=== PATIENT | male | born 1965 | race Caucasian/White ===

== ENCOUNTER 2018-04-22 08:29 | Emergency (ER) | payer SELFPAY ==
[~2018-04-22] VITALS: Ht 170.2 cm; Wt 101.3 kg
[2018-04-22 08:33] VITALS: BP 134/88; PULSE 75; RESP 18; Ht 170.2 cm; Wt 101.3 kg
--- NOTE | 2018-04-22 10:47 | ERD ---
ER Documentation Chief Complaint Chief Complaint LOW BACK PAIN RADIATING TO LEFT LEG. DESCRIBES SHOOTING PAIN. HPI 52-year-old male, with history of chronic back pain, presents to the emergency department, complaining of acute exacerbation of the left lower back pain, radiating to the left lower extremity, the pain is sharp, constant, 7/10. He denies distal weakness, numbness or tingling. ROS All systems reviewed and are negative except as per history of present illness. Medications Home Meds Active Scripts Baclofen* (Baclofen*) 10 Mg Tablet, 10 MG PO Q8 for 7 Days, #21 TAB Prov:VAN CARO MD 04/22/18 Hydrocodone/Acetaminophen (Arnold 5-325 Tablet) 1 Each Tablet, 1 TAB PO QHS PRN for PAIN, #7 TAB Prov:VAN CARO MD 04/22/18 Naproxen* (Naprosyn*) 500 Mg Tablet, 500 MG PO BID PRN for PAIN AND/OR INFLAMMATION for 7 Days, #14 TAB Prov:VAN CARO MD 04/22/18 Allergies Allergies: Coded Allergies: No Known Allergy (Unverified , 04/22/18) FmHx Family History: diabetes Physical Exam Vitals Vital Signs Date Temp Pulse Resp B/P (MAP) Pulse Ox O2 O2 Flow FiO2 Time Delivery Rate 04/22/18 98.4 75 18 134/88 99 08:33 (103) Physical Exam Patient is in no acute distress, vital signs stable. Alert and fully oriented. EYES: PERRLA, EOMI, Sclera and conjunctiva appear normal. EARS: Canals clear, tympanic membranes WNL THROAT: Normal oropharynx. NECK: Supple, No lymphadenopathy. Full ROM without pain or tenderness. HEART: RRR, no rubs, murmurs, clicks or gallops. LUNGS: Clear to auscultation. ABDOMEN: Soft, non-tender without masses or hepatosplenomegaly. EXTREMITIES: No edema bilaterally. BACK: Normal inspection, no deformity, decreased range of motion for lateral rotation and flexion. No vertebral tenderness, bilateral lower muscle spasm. NEURO: Cranial nerves grossly intact, no motor or sensory deficit Results 24 hrs Current Medications Medications Dose Sig/Shai Start Time Status Last (Trade) Ordered Route PRN Stop Time Admin Dose Reason Admin Ketorolac 60 mg ONCE STAT 04/22/18 DC 04/22/18 Tromethamine IM 11:21 04/22/18 11:29 (Toradol) 11:24 Procedures/MDM Differential diagnosis include but not limited to: lumbar sprain/strain, sciatica, herniated disk, UTI less likely pyelo, kidney stone. Neurovascular exam grossly intact. no clinical findings suggestive of acute infectious process, no acute deformity, no edema, no rashes. Physical examination and clinical presentation consistent most likely with acute on chronic back pain with sciatica. During the ED course the patient received treatment with Toradol IM presenting overall improvement of the symptoms. Results and clinical impression discussed with the patient who agrees with management. The patient is stable to be treated outpatient and will be discharged home with recommendations and close monitoring The patient was instructed to follow up with the primary care provider in the next 48h. If symptoms persist, worsen or new symptoms develop, then patient should return to the ED immediately. Instructions explained and given to patient with acknowledgment and demonstrated understanding. Disclaimer: Inadvertent spelling and grammatical errors are likely due to E HR/dictation software use and do not reflect on the overall quality of patient care. Also, please note that the electronic time recorded on this note does not necessarily reflect the actual time of the patient encounter. Departure Diagnosis: Primary Impression: Acute back pain with sciatica Condition: Stable Patient Instructions: Back Pain W/ Sciatica Additional Instructions: Muchas valerie por [facility] para herrera servicio. Esperamos que en herrera visita a la maddie de emergencia herrera problema medico haya sido solucionado y que se sienta mucho mejor. Para estar seguros que herrera mejoria sigue en proceso, le pedimos el favor de hacer eligio liat de seguimiento medico con herrera doctor primario en los proximos 2-4 segal. Lleve con usted estos documentos y las medicinas recetadas. Si zak sintomas empeoran, NO SE ESPERE, por favor regrese a maddie de emergencia INMEDIATAMENTE. En niru que usted no tenga un mdico de atencin primaria: Llame al mdico o clnica comunitaria de referencia que aparece abajo dione las horas de consultorio para hacer eligio liat para que le vean. CLINICAS: [facility] [phone] [address] [facility] [phone] [address] [facility] [phone] [address] [facility] [phone] [address] [place] [id number] [phone] [facility]. [phone] VAN MARSHALL MD Apr 22, 2018 10:47
[2018-04-22] MEDS ORDERED: KETOROLAC 60 MG INJ IM STA (11:21)
[2018-04-22] MEDS ORDERED: NAPR-985 PO (11:36)
[2018-04-22] MEDS ORDERED: HYDR-4011 PO (11:36)
[2018-04-22] MEDS ORDERED: BACL10TA PO (11:39)
== END 2018-04-22 12:08 | disposition home or self-care (01) ==
LOC: FTE 08:29
DX: M54.42 Lumbago with sciatica, left side (principal)
CPT/HCPCS: 96372; J1885